=== PATIENT | male | born 1965 | race Caucasian/White ===

== ENCOUNTER 2018-11-17 13:46 | Observation (INO) | payer MEDICARE, OTHER ==
[2015-10-31 14:19] VITALS: Ht 175.3 cm; Wt 167.1 kg
[~2018-11-17] VITALS: Ht 175.3 cm; Wt 167.1 kg
[~2018-11-17 13:46] MED LIST changes: -ASPI81TA86 PO; -BUDE10.2 PO; -METF-450 PO; -PRAV20TA66 PO
--- NOTE | 2018-11-17 13:48 | ER Report ---
History and Physical Time Seen By MD: 13:48 HPI/ROS CHIEF COMPLAINT: Chest pain and palpitations HISTORY OF PRESENT ILLNESS: This is a 53-year-old male who presents to the emergency department for chest pain and palpitations. The patient was sitting in his doctor's office waiting room, not as a patient but there for his daughter who was ill, while the patient was sitting there he had a sudden onset of left anterior chest pain with shortness of breath, he became flushed, diaphoretic and very lightheaded, the provider was contacted, they didn't EKG noted sinus tachycardia, gave him 324 mg of aspirin, called EMS and sent him to the emergen cy department. The patient states that over the last couple weeks he's had palpitations, states he didn't think anything of it until today. Patient continued to have chest pain in route, EMS did give him one spray of sublingual nitroglycerin. Patient states the pain is now improving, symptoms began approximately one hour prior to arrival. No recent fevers or chills. No visual changes. No headaches. REVIEW OF SYSTEMS: Constitutional: No fever, no chills. Eyes: No discharge. ENT: No sore throat. Cardiovascular: As above. Respiratory: As above. Gastrointestinal: No abdominal pain, no vomiting. Genitourinary: No hematuria. Musculoskeletal: No back pain. Skin: No rashes. Neurological: No headache. Allergies: Coded Allergies: moxifloxacin (Verified Allergy, Intermediate, HIVES, 11/17/18) phentermine (Verified Allergy, Intermediate, LETHARGY, 11/17/18) topiramate (Verified Allergy, Intermediate, LETHARGY, 11/17/18) Home Meds Active Scripts Albuterol Sulfate 0.083% (ALBUTEROL SULFATE 0.083%) 2.5 Mg/3 Ml Vial.neb, 2.5 MG NEB Q4HR PRN for DYSPNEA, #120 VIAL 1 Refill Prov:JAMIE EMERY MD 11/03/15 Reported Medications Metformin Hcl (METFORMIN HCL) 500 Mg Tablet, 1 TAB PO BID, TAB 11/17/18 Modafinil (PROVIGIL) 100 Mg Tablet, 200 MG PO QDAY 11/17/18 Budesonide/Formoterol Fumarate (SYMBICORT 80-4.5 MCG INHALER) 10.2 Gm Hfa.aer.ad, 10.2 GM IH BID 10/30/[address] (SPIRIVA) 18 Mcg/Cap Inh, 1 CAP INH QDAY, INH 10/30/15 Discontinued Reported Medications Modafinil (MODAFINIL) 100 Mg Tablet, 100 MG PO QODAY 12/12/13 Discontinued Scripts Hydrocodone Bit/Acetaminophen (NORCO 5-325 TABLET) 1 Each Tablet, 1-2 EACH PO Q4H PRN for PAIN, #30 TAB Prov:SAROJ JUNIOR MD 08/06/17 Ketorolac Tromethamine (KETOROLAC TROMETHAMINE) 10 Mg Tab, 10 MG PO Q6H, #20 TAB Prov:SAROJ JUNIOR MD 08/06/17 Guaifenesin (MUCINEX) 600 Mg Tablet.er, 600 MG PO BID, #20 TAB 0 Refills Prov:JAMIE EMERY MD 11/03/15 Past Medical/Surgical History Patient has a past medical and surgical history of sleep apnea, asthma, pneumonia, uses CPAP, states previous myocardial infarction secondary to hypoxia, GERD, low testosterone, and then back pain, right rotator cuff surgery, wears glasses, type II diabetes, polycythemia. Reviewed Nurses Notes: Yes Hx Smoking: Yes (OCCASIONALLY) Smoking Status: Light Tobacco Smoker Hx Substance Use Disorder: No Hx Alcohol Use: Yes Constitutional Vital Sign - Last 24 Hours 11/17/18 11/17/18 11/17/18 11/17/18 13:48 13:55 13:58 14:00 Temp 98.5 Pulse 100 Resp 18 B/P (MAP) 128/70 128/70 (89) 106/76 (86) Pulse Ox 93 O2 Delivery Nasal Cannula O2 Flow Rate 4.0 11/17/18 11/17/18 11/17/18 11/17/18 14:01 14:16 14:21 14:30 Pulse 101 ??? Resp 20 B/P (MAP) 117/80 (92) 114/71 (85) Pulse Ox 94 11/17/18 11/17/18 11/17/18 11/17/18 14:31 14:46 15:00 15:01 Pulse 85 76 89 Resp 11 16 19 B/P (MAP) 115/69 (84) Pulse Ox 94 94 94 11/17/18 15:16 Pulse 83 Resp 27 Pulse Ox 94 Physical Exam General Appearance: The patient is alert, has no immediate need for airway protection and no signs of toxicity. Eyes: Pupils equal and round no pallor or injection. ENT, Mouth: Mucous membranes are moist. Respiratory: There are no retractions, lungs are clear to auscultation. Cardiovascular: Regular rate and rhythm, no murmurs, clicks or rubs. Gastrointestinal: Morbidly obese abdomen, is firm and non tender, no masses, bowel sounds normal. No abdominal bruits. Neurological: Alert and oriented 4. Moving all extremities. Following all commands. No focal neuro deficits. Skin: Warm and dry, no rashes. Musculoskeletal: Neck is supple non tender. Extremities are nontender, nonswollen and have full range of motion. DIFFERENTIAL DIAGNOSIS: After history and physical exam differential diagnosis was considered for chest pain including but not limited to myocardial ischemia, pericarditis pulmonary embolus, chest wall pain, pleural inflammation and pulmo nary infectious causes. Medical Decision Making Data Points Result Diagram: 11/17/18 1340 11/17/18 1340 Laboratory Hematology Test 11/17/18 13:40 Red Blood Count 5.14 M/uL (4.00-5.60) Mean Corpuscular Volume 93.2 fL (80.0-96.0) Mean Corpuscular Hemoglobin 31.5 pg (26.0-33.0) Mean Corpuscular Hemoglobin Concent 33.8 g/dL (32.0-36.0) Red Cell Distribution Width 12.7 % (11.5-14.5) Mean Platelet Volume 9.9 fL (7.2-11.1) Neutrophils (%) (Auto) 74.3 % (39.4-72.5) Lymphocytes (%) (Auto) 17.9 % (17.6-49.6) Monocytes (%) (Auto) 6.0 % (4.1-12.4) Eosinophils (%) (Auto) 1.3 % (0.4-6.7) Basophils (%) (Auto) 0.5 % (0.3-1.4) Nucleated RBC Relative Count (auto) 0.0 /100WBC Neutrophils # (Auto) 8.9 K/uL (2.0-7.4) Lymphocytes # (Auto) 2.2 K/uL (1.3-3.6) Monocytes # (Auto) 0.7 K/uL (0.3-1.0) Eosinophils # (Auto) 0.2 K/uL (0.0-0.5) Basophils # (Auto) 0.1 K/uL (0.0-0.1) Nucleated RBC Absolute Count (auto) 0.00 K/uL Sodium Level 137 mmol/L (137-145) Potassium Level 4.2 mmol/L (3.5-5.0) Chloride Level 99 mmol/L (98-107) Carbon Dioxide Level 27 mmol/L (22-30) Blood Urea Nitrogen 15 mg/dl (9-21) Creatinine 0.90 mg/dl (0.66-1.25) Glomerular Filtration Rate Calc > 60.0 Random Glucose 211 mg/dl (75-110) Calcium Level 9.1 mg/dl (8.4-10.2) Total Bilirubin 0.4 mg/dl (0.2-1.3) Aspartate Amino Transf (AST/SGOT) 38 U/L (0-35) Alanine Aminotransferase (ALT/SGPT) 41 U/L (0-56) Alkaline Phosphatase 107 U/L (0-126) Troponin I < 0.012 ng/ml Total Protein 8.2 g/dl (6.3-8.2) Albumin 4.5 g/dl (3.5-5.0) Chemistry Test 11/17/18 13:40 White Blood Count 12.0 k/uL (4.5-11.0) Red Blood Count 5.14 M/uL (4.00-5.60) Hemoglobin 16.2 g/dL (14.0-18.0) Hematocrit 47.9 % (42.0-52.0) Mean Corpuscular Volume 93.2 fL (80.0-96.0) Mean Corpuscular Hemoglobin 31.5 pg (26.0-33.0) Mean Corpuscular Hemoglobin Concent 33.8 g/dL (32.0-36.0) Red Cell Distribution Width 12.7 % (11.5-14.5) Platelet Count 212 K/uL (150-450) Mean Platelet Volume 9.9 fL (7.2-11.1) Neutrophils (%) (Auto) 74.3 % (39.4-72.5) Lymphocytes (%) (Auto) 17.9 % (17.6-49.6) Monocytes (%) (Auto) 6.0 % (4.1-12.4) Eosinophils (%) (Auto) 1.3 % (0.4-6.7) Basophils (%) (Auto) 0.5 % (0.3-1.4) Nucleated RBC Relative Count (auto) 0.0 /100WBC Neutrophils # (Auto) 8.9 K/uL (2.0-7.4) Lymphocytes # (Auto) 2.2 K/uL (1.3-3.6) Monocytes # (Auto) 0.7 K/uL (0.3-1.0) Eosinophils # (Auto) 0.2 K/uL (0.0-0.5) Basophils # (Auto) 0.1 K/uL (0.0-0.1) Nucleated RBC Absolute Count (auto) 0.00 K/uL Glomerular Filtration Rate Calc > 60.0 Calcium Level 9.1 mg/dl (8.4-10.2) Total Bilirubin 0.4 mg/dl (0.2-1.3) Aspartate Amino Transf (AST/SGOT) 38 U/L (0-35) Alanine Aminotransferase (ALT/SGPT) 41 U/L (0-56) Alkaline Phosphatase 107 U/L (0-126) Troponin I < 0.012 ng/ml Total Protein 8.2 g/dl (6.3-8.2) Albumin 4.5 g/dl (3.5-5.0) EKG/Imaging EKG Interpretation 12 lead EKG: Time of EKG 1345. Rhythm: Normal sinus rhythm, ventricular rate 100 bpm. [place]: normal QRS: normal ST segments: No ST depression or elevation identified. There are no changes noted on EKG from the 08/01/2017 EKG. 12 lead EKG: Repeat EKG while the patient was having a dizzy and palpitation episode, time 1438. Rhythm: Normal sinus rhythm, ventricular rate 90 bpm. [place]: normal QRS: normal ST segments: No ST depression or elevation identified. No changes from the initial EKG. [place] [facility] [place]: Fritz Madrigal : 1965 Visit/Account:[id number] Date of Sevice: 11/17/2018 CHEST PA LAT HISTORY: Chest pain. Findings worrisome for heart attack. COMPARISON: CT chest September. FINDINGS: Cardiomediastinal contours: The heart size is normal. Lungs and pleura: There is no finding of an infiltrate, lymphadenopathy or pleural effusion. Pleural thickening laterally on both sides of the chest repres ents subparietal pleural adipose tissue and it is better seen on the previous chest CT scan. Bones/soft tissues: There are no findings of a fracture. IMPRESSION: No active disease in the chest. No findings of congestive heart failure. Report Dictated By: Bryson Sotelo MD at 11/17/2018 2:46 PM Report E-Signed By: Bryson Sotelo MD at 11/17/2018 2:48 PM WSN:[id number] ED Course/Re-evaluation Clinical Indication for ER IV: Hydration, IV Access ED Course The patient was admitted to room. A history and physical were obtained. Differential diagnoses were considered. An IV was started. A CBC, CMP and troponin were obtained. A 1 L normal saline bolus was given. EKG showing normal sinus rhythm, no changes noted from the office EKG or previous EKGs on file. CBC showing white count of 12.0, blood sugar 211, negative troponin. Negative two- view chest x-ray. Although the laboratory studies and workup SRS been unremarkable, I am very concerned at this chest pain the patient is experiencing is secondary to ACS. I did review this with the patient, he also had a lightheaded spell with some increased palpitations while in the emergency depa rtment, repeat EKG showing no changes from the previous EKGs. I spoke with our hospitalist, Jose L Barrzaa still, I did express my concern about ACS, patient's heart score of 4, he has accepted the patient into the hospital services, patient [facility]. They will discuss the possibility of doing a stress test. The patient is agreeable with this plan, patient was admitted to the medical floor. Patient also received 324 mg of aspirin about 40 minutes prior to arrival. 11/17/2018 2:44:39 pm the patient is lightheaded at that, repeat EKG in progress. No changes noted on the bedside ECG monitor. 11/17/2018 2:53:27 pm heart score of 4. 11/17/2018 3:12:32 pm I did speak with Dr. carisa Barraza still, the hospitalist clay pigeon loader, discussed the patient's case, I did express my concern about sending him home, with the palpitations over the last 2 weeks with the increased intens ity today and concerned about ACS, the patient will be admitted to the [facility] telemetry unit, they will discuss the possibility of a stress test at that time. Decision to Disposition Date: Nov 17, 2018 Decision to Disposition Time: 15:12 Depart Departure Latest Vital Signs Vital Signs Date Time Temp Pulse Resp B/P (MAP) Pulse Ox O2 Delivery O2 Flow Rate FiO2 11/17/18 15:16 83 27 94 11/17/18 15:00 115/69 (84) 11/17/18 13:58 4.0 11/17/18 13:48 98.5 Nasal Cannula Impression: Primary Impression: Chest pain with high risk of acute coronary syndrome Condition: Improved Disposition: Admitted from ER Referrals: DANIEL BARTLETT MD (PCP) MINERVA BURRELLP-BC Nov 17, 2018 13:48
[2018-11-17] MEDS ORDERED: NS(*) 0.9% 1000 ML BAG 1,000 ML IV ONE (13:57)
[2018-11-17] MEDS ORDERED: NITROGLYCERIN 0.4 MG SUBL SL SCH (14:00)
[2018-11-17 14:05] LABS: PLATELET COUNT, AUTOMATED 212 K/uL (150-450)
--- NOTE | 2018-11-17 14:05 | EKG ---
FACILITY: [facility] PATIENT NAME: NAN KLEIN : [id number] MR: [id number] V: [id number] EXAM DATE: ORDERING PHYSICIAN: MINERVA BURRELL TECHNOLOGIST: MITCH Test Reason : CP Blood Pressure : / mmHG Vent. Rate : 100 BPM Atrial Rate : 100 BPM P-R Int : 160 ms QRS Dur : 090 ms QT Int : 322 ms P-R-T Axes : 046 006 043 degrees QTc Int : 415 ms Normal sinus rhythm Normal ECG No previous ECGs available Confirmed by Max Hatch ([id number]) on 11/17/2018 10:43:31 PM Referred By: OSCAR Confirmed By:Max Mars
--- NOTE | 2018-11-17 14:53 | RADIOLOGY IMAGING REPORT ---
FACILITY: [facility] - [place] PATIENT NAME: Fritz Madrigal : 1965 MR: [id number] V: [id number] EXAM DATE: ORDERING PHYSICIAN: MINERVA BURRELL TECHNOLOGIST: Location: [facility] Patient: Fritz Madrigal : 1965 Visit/Account:[id number] Date of Sevice: 11/17/2018 CHEST PA LAT HISTORY: Chest pain. Findings worrisome for heart attack. COMPARISON: CT chest September. FINDINGS: Cardiomediastinal contours: The heart size is normal. Lungs and pleura: There is no finding of an infiltrate, lymphadenopathy or pleural effusion. Pleural thickening laterally on both sides of the chest represents subparietal pleural adipose tissue and it is better seen on the previous chest CT scan. Bones/soft tissues: There are no findings of a fracture. IMPRESSION: No active disease in the chest. No findings of congestive heart failure. Report Dictated By: Bryson Sotelo MD at 11/17/2018 2:46 PM Report E-Signed By: Bryson Sotelo MD at 11/17/2018 2:48 PM [id number]
[2018-11-17] MEDS ORDERED: MODA100T39 PO (15:28)
--- NOTE | 2018-11-17 15:33 | EKG ---
FACILITY: [facility] - [place] PATIENT NAME: NAN KLEIN : [id number] MR: [id number] V: [id number] EXAM DATE: ORDERING PHYSICIAN: MINERVA BURRELL TECHNOLOGIST: MACHO Amado Reason : CP Blood Pressure : / mmHG Vent. Rate : 090 BPM Atrial Rate : 090 BPM P-R Int : 174 ms QRS Dur : 090 ms QT Int : 326 ms P-R-T Axes : 037 000 038 degrees QTc Int : 398 ms Normal sinus rhythm Normal ECG When compared with ECG of 17-NOV-2018 13:45, No significant change was found Confirmed by Max Hatch ([id number]) on 11/17/2018 10:45:50 PM Referred By: LILI Confirmed By:Max Mars
[2018-11-17 15:51] VITALS: BP 125/79
[2018-11-17] MEDS ORDERED: METF-450 PO (16:01)
[2018-11-17] MEDS ORDERED: ONDANSETRON 4 MG/2 ML VIAL IVP PRN (19:05)
[2018-11-17] MEDS ORDERED: ACETAMINOPHEN 325 MG TAB PO PRN (19:05)
[2018-11-17] MEDS ORDERED: FLUSH 10 ML SYR IVP PRN (19:05)
[2018-11-17] MEDS ORDERED: INSULIN HUM LISPRO 100 UN/ML 3 ML VIAL SUBQ PRN (19:10)
--- NOTE | 2018-11-17 19:24 | History & Physical ---
History of Present Illness Chief Complaint L chest pain History of Present Illness 53M presented with acute onset L chest pain. PMHx significant for DM just diagnosed after history of prediabetes, reflux, COPD, morbid obesity. Was at daughter's PCP as she has been ill and had sudden onset L sided CP that did not radiate, associated SOB. EKG in PCP office showed sinus tachycardia, EMS called and given one spray nitro with relief of symptoms. CP free since that time, EKG without acute changes, troponin negative. Admitted for further observation and risk stratification. Denies family Hx CV disease, previous smoker, very recent Dx DM. History Problems: (1) Morbid obesity Status: Chronic (2) COPD (chronic obstructive pulmonary disease) Status: Chronic Home Meds Active Scripts Albuterol Sulfate 0.083% (ALBUTEROL SULFATE 0.083%) 2.5 Mg/3 Ml Vial.neb, 2.5 MG NEB Q4HR PRN for DYSPNEA, #120 VIAL 1 Refill Prov:JAMIE EMERY MD 11/03/15 Reported Medications Metformin Hcl (METFORMIN HCL) 500 Mg Tablet, 1 TAB PO BID, TAB 11/17/18 Modafinil (PROVIGIL) 100 Mg Tablet, 200 MG PO QDAY 11/17/18 Budesonide/Formoterol Fumarate (SYMBICORT 80-4.5 MCG INHALER) 10.2 Gm Hfa .aer.ad, 10.2 GM IH BID 10/30/15 Tiotropium [place] (SPIRIVA) 18 Mcg/Cap Inh, 1 CAP INH QDAY, INH 10/30/15 Discontinued Reported Medications Modafinil (MODAFINIL) 100 Mg Tablet, 100 MG PO QODAY 12/12/13 Discontinued Scripts Hydrocodone Bit/Acetaminophen (NORCO 5-325 TABLET) 1 Each Tablet, 1-2 EACH PO Q4H PRN for PAIN, #30 TAB Prov:SAROJ JUNIOR MD 08/06/17 Ketorolac Tromethamine (KETOROLAC TROMETHAMINE) 10 Mg Tab, 10 MG PO Q6H, #20 TAB Prov:SAROJ JUNIOR MD 08/06/17 Guaifenesin (MUCINEX) 600 Mg Tablet.er, 600 MG PO BID, #20 TAB 0 Refills Prov:JAMIE EMERY MD 11/03/15 Allergies: Coded Allergies: moxifloxacin (Verified Allergy, Intermediate, HIVES, 11/17/18) phentermine (Verified Allergy, Intermediate, LETHARGY, 11/17/18) topiramate (Verified Allergy, Intermediate, LETHARGY, 11/17/18) Patient History: Patient reports no known family medical history. Hx Smoking: Yes (QUIT 3 weeks ago ) Smoking Status: Light Tobacco Smoker Caffeine Intake: Coffee, Soda Caffeine/Cups Per Day: 2 CUP DAILY, 2 CAN DIET SODA DAILY Hx Alcohol Use: Yes Hx Substance Use Disorder: No Social Drug Use: Never Review of Systems All Systems Reviewed/Normal: Yes, Except as Noted Cardiovascular: Palpitations (occasional, not actively having); No Chest Pain Respiratory: No Shortness of Breath, No Cough, No Wheezing Gastrointestinal: No Nausea, No Vomiting Exam Vital Signs Vital Signs Date Time Temp Pulse Resp B/P (MAP) Pulse Ox O2 Delivery O2 Flow Rate FiO2 11/17/18 16:08 97 Nasal Cannula 2.0 11/17/18 15:51 99.9 79 24 125/79 (94) General Appearance: Alert, Awake, No Acute Distress, Afebrile Neuro: No Gross deficits ENT: Normal Cardiovascular: Normal Rhythm & Peripheral Pulses Respiratory: No Respiratory Distress (3L O2, @ baseline) GI: Abd Soft and Non-Tender Extremities: Soft and Non Tender, Warm, Pulses, Perfused; No Edema Medical Decision Making Data Points Result Diagram: 11/17/18 1340 11/17/18 1340 EKG / Imaging EKG Interpretation NSR Monitor Interpretation: Normal Sinus Rhythm Assessment and Plan Problems: (1) Chest pain Assessment & Plan: Atypical chest pain in moderate risk patient. We will trend troponin, repeat EKG, monitor on telemetry. If no recurrence of chest pain and work up negative would recommend outpatient Lexiscan due to patients weight and lung pathology. We started a statin based on his diagnosis of diabetes and age over 40. He was started on 81mg ASA as well. (2) COPD (chronic obstructive pulmonary disease) Status: Chronic Assessment & Plan: On 3L at baseline, will continue chronic medications. (3) Diabetes mellitus type 2 in obese Status: Chronic Assessment & Plan: Very recently diagnosed after history of prediabetes for several years. Venous Thromboembolism Antithrombotics Is Pt On Any Antithrombotics?: No (early ambulation) Exam Sepsis Risk: No Definite Risk FALL JOSE PHILLIP DO Nov 17, 2018 19:24
[2018-11-17 20:12] VITALS: BP 130/71
[2018-11-17] MEDS ORDERED: BUDE10.2 PO (20:36)
[2018-11-17] MEDS ORDERED: IPRA3AMP10 IH (20:37)
[2018-11-17] MEDS ORDERED: PRAVASTATIN SOD 20 MG TAB PO SCH (21:00)
[2018-11-17 23:43] VITALS: BP 99/81
[2018-11-18 06:07] VITALS: BP 123/77
[2018-11-18] MEDS ORDERED: metFORMIN HCL 500 MG TAB PO SCH (08:00)
[2018-11-18] MEDS ORDERED: PRAV20TA66 PO (08:19)
[2018-11-18] MEDS ORDERED: ASPI81TA86 PO (08:19)
--- NOTE | 2018-11-18 08:22 | Hospitalist Depart ---
Discharge Summary Reason for Hosp/Final Diag: (1) Chest pain Hospital Course & Plan: He presented with atypical chest pain in moderate risk patient. We trended troponin levels which were negative, repeat EKG shows no change, monitored on telemetry.He had no recurrence of chest pain and work up was negative, we recommend outpatient Lexiscan due to patients weight and lung pathology. We started a statin based on his diagnosis of diabetes and age over 40. He was started on 81mg ASA as well. He will follow up with Dr. Bartlett to get outpatient stress test. (2) COPD (chronic obstructive pulmonary disease) Status: Chronic Hospital Course & Plan: On 3L at baseline, will continue chronic medications. (3) Diabetes mellitus type 2 in obese Status: Chronic Hospital Course & Plan: Very recently diagnosed after history of prediabetes for several years. Departure Latest Vital Signs Vital Signs 11/18/18 11/18/18 06:07 06:10 Temp 98.0 Pulse 104 Resp 20 B/P (MAP) 123/77 (92) Pulse Ox 94 O2 Delivery CPAP O2 Flow Rate 4.0 Weight (Pounds): 368 Weight (Ounces): 8.0 Result Diagram: 11/17/18 1340 11/18/18 0605 Condition: Improved Discharge: Home, Self Care Discharge Instructions Home Meds Active Scripts Pravastatin Sodium (PRAVASTATIN SODIUM) 20 Mg Tablet, 20 MG PO QHS, #30 TAB Prov:SYEDA CLOUD [facility] 11/18/18 Aspirin (ASPIRIN EC) 81 Mg Tablet.dr, 81 MG PO QDAY, #30 TAB Prov:SYEDA CLOUD [facility] 11/18/18 Reported Medications Ipratropium/Albuterol Sulfate (IPRAT-ALBUT 0.5-3(2.5) MG/3 ML) 3 Ml Ampul.neb, 3 ML IH Q6-8H PRN for WHEEZING 11/17/18 Budesonide/Formoterol Fumarate (SYMBICORT 160-4.5 MCG INHALER) 10.2 Gm Inh, 2 PUFF PO BID, INH 11/17/18 Metformin Hcl (METFORMIN HCL) 500 Mg Tablet, 1 TAB PO BID, TAB 11/17/18 Modafinil (PROVIGIL) 100 Mg Tablet, 200 MG PO QDAY 11/17/18 Tiotropium [place] (SPIRIVA) 18 Mcg/Cap Inh, 1 CAP INH QDAY, INH 10/30/15 Discontinued Reported Medications Modafinil (MODAFINIL) 100 Mg Tablet, 100 MG PO QODAY 12/12/13 Discontinued Scripts Hydrocodone Bit/Acetaminophen (NORCO 5-325 TABLET) 1 Each Tablet, 1-2 EACH PO Q4H PRN for PAIN, #30 TAB Prov:SAROJ JUNIOR MD 08/06/17 Ketorolac Tromethamine (KETOROLAC TROMETHAMINE) 10 Mg Tab, 10 MG PO Q6H, #20 TAB Prov:SAROJ JUNIOR MD 08/06/17 Guaifenesin (MUCINEX) 600 Mg Tablet.er, 600 MG PO BID, #20 TAB 0 Refills Prov:JAMIE EMERY MD 11/03/15 Albuterol Sulfate 0.083% (ALBUTEROL SULFATE 0.083%) 2.5 Mg/3 Ml Vial.neb, 2.5 MG NEB Q4HR PRN for DYSPNEA, #120 VIAL 1 Refill Prov:JAMIE EMERY MD 11/03/15 Diet: Diabetic Activity: As Tolerated Special Instructions: Follow up with Dr. Celis to schedule stress test. Take baby aspirin daily. Start Pravastatin for decreased cardiovascular risk. Copies to: DANIEL BARTLETT MD ; Venous Thromboembolism Antithrombotics Is Pt On Any Antithrombotics?: No (early ambulation) SYEDA CLOUD Nov 18, 2018 08:22
[2018-11-18] MEDS ORDERED: ASPIRIN 81 MG ENTERIC COATED PO SCH (09:00)
[2018-11-20] MEDS ORDERED: INFLUENZA VIRUS VAC 0.5ML SYR IM ONLY ONE (09:00)
== END 2018-11-18 08:19 | disposition home or self-care (01) ==
LOC: ER 13:51 → MED 15:22 → INTOOBSV 15:22
PROVIDERS: ADMIT Internal Medicine; ATTEND Internal Medicine
DX: R07.9 Chest pain, unspecified (principal); E11.9 Type 2 diabetes mellitus without complications; J44.9 Chronic obstructive pulmonary disease, unspecified
CPT/HCPCS: 36415; 36416; 71046; 82948; 83735; 84484; 85025; 85379; 93005; 96360; 99284; G0378; J1815; J7030; 82040; 82247; 82310; 82374; 82435; 82565; 82947; 84075; 84132; 84155; 84295; 84450; 84460; 84520

== ENCOUNTER → 2018-11-17 | Outpatient (CLI) | payer MEDICARE, OTHER ==
[2015-10-31 14:19] VITALS: BMI 52.6
[~2018-11-17] MED LIST: ALBU2.5V36 NEB; ASPI81TA86 PO; BUDE10.2 INH; BUDE10.2 PO; BUDE10.25 IH; CEFU500T10 PO; CYC10 PO; DIA5 PO; GUAI600T57 PO; HYDR-627 PO; HYDR-653 PO; IBUP-1618 PO; IPRA3AMP10 IH; KET10 PO; LIRA3PEN; LIRA3PEN SQ; LOR5/325 PO; LOR7.5/325 PO; METF-450 PO; MODA100T39 PO; MODA100T5 PO; MOX400 PO; MOXI400T2 PO; NAPR-1043 PO; PAN40 PO; PRAV20TA66 PO; PRED20TA6 PO; TEST1.25 TD; TIO18R INH; TIZA4CAP3 PO
== END ==
LOC: AMB 13:31
PROVIDERS: ATTEND Nurse Practitioner
DX: R07.9 Chest pain, unspecified (principal); R06.82 Tachypnea, not elsewhere classified
CPT/HCPCS: A0425; A0427

== ENCOUNTER → 2018-12-03 | Outpatient (CLI) | payer OTHER ==
[2015-10-31 14:19] VITALS: BMI 52.6
[~2018-12-03] MED LIST changes: +ASPI81TA86 PO; +BUDE10.2 PO; +METF-450 PO; +PRAV20TA66 PO; +REGADENOSON 0.4 MG/5 ML SYR ONE
--- NOTE | 2018-12-03 14:55 | RADIOLOGY IMAGING REPORT ---
FACILITY: [facility] PATIENT NAME: Fritz Madrigal : 1965 MR: [id number] V: [id number] EXAM DATE: ORDERING PHYSICIAN: DANIEL BARTLETT TECHNOLOGIST: Location: [facility] Patient: Fritz Madrigal : 1965 Visit/Account:[id number] Date of Sevice: 12/03/2018 EXAMINATION: Single isotope SPECT imaging with regadenoson infusion and gated SPECT imaging. DATE OF EXAMINATION: 12/03/2018. DATE OF INTERPRETATION: 12/03/2018. REQUESTING PHYSICIAN: DANIEL BARTLETT. INDICATION: The patient is a 53-year-old male evaluated for chest pain, history of obesity, patient noted to weigh 319 pounds. PROCEDURE: After informed consent the patient received an intravenous injection of 12.8 mCi of Tc-99 m sestamibi followed at an appropriate time interval by rest imaging. The patient then subsequently received an intravenous infusion of 0.4 mg of regadenoson per protocol without complication. Resting heart rate was 81 bpm with a peak heart rate of 100 bpm. Blood pressure at rest was 116 / 72 and fo llowing infusion was 122 / 66. Baseline EKG demonstrates sinus rhythm. There were no diagnostic EKG changes of ischemia following infusion. Symptoms were nonspecific. The patient then received an in travenous injection of 29.5 mCi of Tc-99m sestamibi followed by stress imaging. RAW DATA: Examination of the summed raw data revealed a good quality study. MYOCARDIAL PERFUSION: The tomographic images demonstrate normal perfusion rest and stress; no transi ent ischemic dilation post stress. GATED IMAGES: The gated images demonstrate no regional wall motion and thickening LVEF 60%. IMPRESSION: 1. Nondiagnostic Lexiscan stress ECG 2. Normal myocardial perfusion scan. 3. Normal LV systolic function; LVEF 68%. Report Dictated By: Helio Coon MD at 12/03/2018 2:48 PM Report E-Signed By: Helio Coon MD at 12/03/2018 2:51 PM [id number]
== END ==
LOC: NUC 01:27
PROVIDERS: ATTEND Family Medicine
DX: R07.2 Precordial pain (principal)
CPT/HCPCS: 78452; 93017; A9500; J2785